=== PATIENT | female | born 1990 | race Caucasian/White ===

== ENCOUNTER 2016-11-04 11:57 | Emergency (ER) | payer BC ==
[2016-11-04 12:13] VITALS: BP 110/61
[2016-11-04] MEDS ORDERED: Ibuprofen TAB* 600 MG PO ONE (13:22)
--- NOTE | 2016-11-24 08:57 | UC ---
Kory Mccrary Angela, scribed for Gavi Santos MD on 11/04/16 at 1322 . General HPI - HPI Summary HPI Summary: This pt is a 26 y/o female presenting to [facility] c/o sore throat and muffled ear since yesterday, worsening overnight. Pt reports it started as a mild sore throat. She additionally notes her whole face feels swollen. Per triage note, pt reports that her throat feels like "I swallowed razor blades this morning." Pt denies rash, fever, cough. Pt denies any PMHx of mono. - History of Current Complaint Chief Complaint: UCRespiratory Stated Complaint: THROAT Time Seen by Provider: 11/04/16 13:14 Hx Obtained From: Patient Hx Last Menstrual Period: mirana Onset/Duration: Lasting Days - 1 day, Worse Since - last night Associated Signs & Symptoms: Positive: Other - facial swelling, sore throat, left ear muffled. Negative: Fever, Headache, Nausea, Vomiting - Allergy/Home Medications Allergies/Adverse Reactions: Allergies Allergy/AdvReac Type Severity Reaction Status Date / Time Cephalexin [From Keflex] Allergy Rash Verified 05/11/15 11:11 PMH/Surg Hx/FS Hx/Imm Hx - Additional Past Medical History Additional PMH: PMHx: bilateral ovarian cysts Other Endocrine History: DENIES: diabetes Other Cardiovascular History: DENIES: HTN Respiratory History: Asthma - exercise induced Psychological History: Anxiety, Depression, Post Traumatic Stress Disorder Other Psychological History: ADD - Surgical History Surgical History: Yes Surgery Procedure, Year, and Place: appy 1999. WISDOM TEETH--2007 - Family History Known Family History: Positive: Diabetes - great grandmother, Other - Mother: osteoporosis, endometriosis, hypothyroidism. Negative: Hypertension Family History: Maternal grandfather: arthritis. Grandmother: colon CA. - Social History Alcohol Use: Occasionally Substance Use Type: None Smoking Status (MU): Former Smoker Type: Cigarettes Amount Used/How Often: 2 - 1/4 pack cigarettes daily Length of Time of Smoking/Using Tobacco: 5 YEARS Have You Smoked in the Last Year: Yes When Did the Patient Quit Smoking/Using Tobacco: January 30, 2014 Household Exposure Type: Cigarettes - Immunization History Most Recent Influenza Vaccination: season Review of Systems Constitutional: Negative Skin: Negative Eyes: Negative ENT: Sore Throat, Ear Ache - left ear is muffled, Other - face swelling Respiratory: Negative Cardiovascular: Negative Gastrointestinal: Negative Genitourinary: Negative Motor: Negative Neurovascular: Negative Musculoskeletal: Negative Neurological: Negative All Other Systems Reviewed And Are Negative: Yes Physical Exam Triage Information Reviewed: Yes Appearance: Well-Nourished Vital Signs: Initial Vital Signs Temp 98.2 F 11/04/16 12:10 Pulse 90 11/04/16 12:10 Resp 18 11/04/16 12:10 BP 110/61 11/04/16 12:10 Pulse Ox 100 11/04/16 12:10 Vital Signs Reviewed: Yes Eye Exam: Normal ENT: Positive: Other: - Posterior pharynx is very erythematous. Uvula is midline. No sores are appreciated. Neck: Positive: Supple, Nontender, No Lymphadenopathy Respiratory Exam: Normal Respiratory: Positive: Chest non-tender, Lungs clear, Normal breath sounds, No respiratory distress, No accessory muscle use Cardiovascular Exam: Normal Cardiovascular: Positive: RRR, No Murmur, Pulses Normal, Brisk Capillary Refill Abdominal Exam: Normal Abdomen Description: Positive: Nontender, No Organomegaly, Soft Bowel Sounds: Positive: Present Musculoskeletal Exam: Normal Musculoskeletal: Positive: Strength Intact Neurological Exam: Normal - nonfocal, grossly intact Psychological Exam: Normal - conversing easily and appropriately Skin Exam: Normal - no visible or reported rash Course/Dx - Course Course Of Treatment: Rapid strep test is negative for strep throat. Reviewed with pt. Discussed results and coa. Questions as posed answered to the best of my ability. - Differential Dx - Multi-Symptom Provider Diagnoses: acute pharyngitis Discharge - Discharge Plan Condition: Stable Disposition: HOME Prescriptions: Azithromyxin OLIVIER (NF) [Z-Olivier (Zithromax) 250 mg tabs #6] 2 tab PO .TODAY, THEN 1 DAILY #6 tab Ibuprofen TAB* [Motrin TAB* 600 MG] 600 mg PO Q8H PRN #30 tab PRN Reason: Pain Patient Education Materials: Pharyngitis (ED), Sinusitis (ED) Forms: *Work Release Referrals: Elizabeth Rogers MD [Primary Care Provider] - Additional Instructions: Follow up primary care physician per routine. Seek medical attention sooner for worse or new problems in the meantime. If your symptoms continue or worsen, then consider being tested for mononucleosis. The documentation as recorded by the scribe, Horn,Kenisha accurately reflects the service I personally performed and the decisions made by me, Gavi Santos MD.
== END 2016-11-04 14:20 | disposition home or self-care (01) ==
LOC: UCEAST 11:57
DX: J02.9 Acute pharyngitis, unspecified (principal); J45.990 Exercise induced bronchospasm; F41.9 Anxiety disorder, unspecified; F32.9 Major depressive disorder, single episode, unspecified; F98.8 Other specified behavioral and emotional disorders with onset usually occurring in childhood and adolescence; N83.202 Unspecified ovarian cyst, left side; N83.201 Unspecified ovarian cyst, right side; Z88.1 Allergy status to other antibiotic agents; Z87.891 Personal history of nicotine dependence
CPT/HCPCS: 87651; 99212; A9270-GY; G0463

== ENCOUNTER 2017-07-20 12:11 | Emergency (ER) | payer BC ==
[2017-07-20 12:50] VITALS: BP 99/66
--- NOTE | 2017-07-20 12:51 | UC ---
Eye Complaint HPI - HPI Summary HPI Summary: 26 y/o female presents to the urgent care c/o left eye swelling and pain x 2 weeks. She has been using her allergy eye drops Aquate itchy relief w/o any improvement. However she noticed yesterday a small stye in the lateral side of her upper eyelid that is painful. Last year she had a stye and it worsen so bad w/ periorbital cellulitis that DR Garza Rx Doxycycline PO and Tobramycin Dexamethasone opthalmic drops. Pt request a Rx for the same drops. She brought empty medication. Pain is 7/10 at touch w/ mild redness. Pt denies visual disturbance, photophobia, fever, SOB, chest pain, GARCIA, abdominal pain,N/V/ D - History of Current Complaint Chief Complaint: UCEye Stated Complaint: EYE PAIN Time Seen by Provider: 07/20/17 12:49 Hx Obtained From: Patient Hx Last Menstrual Period: Mirena ?: No Onset/Duration: Gradual Onset Timing: Constant Severity Initially: Mild Severity Currently: Moderate Pain Intensity: 7 Pain Scale Used: 0-10 Numeric Location of Injury: Eye Lid (upper) - left upper eyelid Character: Foreign Body Sensation Aggravating Factor(s): Blinking Alleviating Factor(s): Nothing Associated Signs And Symptoms: Positive: Drainage (Clear), Swelling - mild - Risk Factors Penetrating Injury Risk Factor: Negative Globe Rupture Risk Factors: Negative Acute Glaucoma Risk Factors: Negative Optic Artery Occlusion Risk Factors: Negative - Allergies/Home Medications Allergies/Adverse Reactions: Allergies Allergy/AdvReac Type Severity Reaction Status Date / Time cephalexin Allergy Rash Verified 07/20/17 12:45 PMH/Surg Hx/FS Hx/Imm Hx Previously Healthy: Yes - Pt denies PMHX - Surgical History Surgical History: Yes Surgery Procedure, Year, and Place: appy 1999. WISDOM TEETH--2007 - Family History Known Family History: Positive: None, Diabetes - great grandmother, Other - Mother: osteoporosis, endometriosis, hypothyroidism. Negative: Hypertension Family History: Maternal grandfather: arthritis. Grandmother: colon CA. - Social History Occupation: Employed Full-time Lives: With Family Alcohol Use: Occasionally Substance Use Type: None Smoking Status (MU): Former Smoker Type: Cigarettes Amount Used/How Often: 2 - 1/4 pack cigarettes daily Length of Time of Smoking/Using Tobacco: 5 YEARS Have You Smoked in the Last Year: Yes When Did the Patient Quit Smoking/Using Tobacco: January 30, 2014 Household Exposure Type: Cigarettes - Immunization History Most Recent Influenza Vaccination: 2014/2015 season Review of Systems Constitutional: Negative Skin: Negative Eyes: Drainage - clear, Eye Redness - left upper eyelid painful and red ENT: Negative Respiratory: Negative Cardiovascular: Negative Gastrointestinal: Negative Genitourinary: Negative Motor: Negative Neurovascular: Negative Musculoskeletal: Negative Neurological: Negative Psychological: Negative Is Patient Immunocompromised?: No All Other Systems Reviewed And Are Negative: Yes Physical Exam - Summary Physical Exam Summary: Vital Signs Reviewed: Yes General: Well appearing, well nourished female in no apparent pain distress Eyes: Positive: B/L Conjunctiva clear- Visual acuity: WNL,Visual gutiérrez: full to confrontation.mild periorbital soft tissue swelling at the left upper eyelid with erythema and white small pustule in the lateral side of eyelid, tender to palpation. PERRLA, EOMI intact w/out limitation or complaint of pain. eyelashes clear. mild tearing and yellowish drainage observed. No ciliary flush. No chemosis, No photophobia. Normal fundoscopic exam; no proptosis, exophthalmos, nystagmus. ENT: Positive: Normal ENT inspection, Hearing grossly normal, Pharynx normal, Nasal congestion, Nasal drainage - clear, TMs normal - B/L external ear canal clear , TM's WNL. Negative: Tonsillar swelling, Tonsillar exudate Neck: Positive: Supple, Nontender, No Lymphadenopathy Respiratory: Positive: Chest nontender, Lungs clear, Normal breath sounds, No respiratory distress Cardiovascular: Positive: RRR, No Murmur, Pulses Normal, Brisk Capillary Refill Abdomen Description: Positive: Nontender, No Organomegaly, Soft. Negative: CVA Tenderness (R), CVA Tenderness (L) Bowel Sounds: Positive: Present Musculoskeletal: Positive: Strength Intact, ROM Intact, No Edema Neurological Exam: Normal Psychological Exam: Normal Skin Exam: Normal Triage Information Reviewed: Yes Vital Signs: Initial Vital Signs Temp 98.1 F 07/20/17 12:46 Pulse 78 07/20/17 12:46 Resp 18 07/20/17 12:46 BP 99/66 07/20/17 12:46 Pulse Ox 100 07/20/17 12:46 Eye Complaint Course/Dx - Course Course Of Treatment: 26 y/o female presents to the urgent care c/o left eye swelling and pain x 2 weeks. She has been using her allergy eye drops Aquate itchy relief w/o any improvement. However she noticed yesterday a small stye in the lateral side of her upper eyelid that is painful. Last year she had a stye and it worsen so bad w/ periorbital cellulitis that DR Garza Rx Doxycycline PO and Tobramycin Dexamethasone opthalmic drops. Pt request a Rx for the same drops. She brought empty medication. Pain is 7/10 at touch w/ mild redness. Pt denies visual disturbance, photophobia, fever, SOB, chest pain , GARCIA, abdominal pain,N/V/D. Hx obtained. Pt with a LF lateral upper eyelid internal hordeolum on examination. Pt Rx Tobramycin Ophthalmic drops as seh requested. Pt advised to apply warm compresses and massage the eye with gentle pressure 4-5 times for 10-15min throughout the day. Then apply ABX and if not improvement of symptoms to f/u with her regulatory internship Dr Rolon for further evaluation and treatment. PT understood and agreed with plan of care. - Differential Dx/Diagnosis Differential Diagnosis/HQI/PQRI: Conjunctivitis, Corneal Abrasion, Periorbital Cellulitis, Other - hordeolum Provider Diagnoses: 1-Left uper eyelid internal hordeolum Discharge - Sign-Out/Discharge Documenting (check all that apply): Discharge/Admit/Transfer - D/c home - Discharge Plan Condition: Stable Disposition: HOME Prescriptions: Tobramycin/Dexameth OPTH.SUSP* [Tobradex 0.3-0.1%*] 1 drop LEFT EYE TID #1 btl Patient Education Materials: Lashay (ED) Referrals: Elizabeth Rogers MD [Primary Care Provider] - 2 Days Joon Rolon MD [Medical Doctor] - If Needed Additional Instructions: 1-Please apply ophthalmic drops on your left eye as directed. Please apply warm compresses and massage the eye with gentle pressure 4-5 times for 10-15min throughout the day. Encourage hand washing to avoid spread 2- If you do not improve or if symptoms worsen please f/u with your regulatory internship DR Pratt for further evaluation and treatment - Billing Disposition and Condition Condition: STABLE Disposition: HOME
== END 2017-07-20 13:20 | disposition home or self-care (01) ==
LOC: UCEAST 12:11
DX: H00.014 Hordeolum externum left upper eyelid (principal); Z87.891 Personal history of nicotine dependence
CPT/HCPCS: 99212; G0463

== ENCOUNTER 2018-11-02 09:49 | Emergency (ER) | payer BC ==
--- NOTE | 2018-11-02 10:24 | UC ---
Skin Complaint HPI - HPI Summary HPI Summary: 28 yo female presents with soft tissue lump to her left lower abdomen. She tells me that this area has been there for 5-6 years, but over the last few weeks has noticed this getting larger. She saw her PCP years ago and was told it was a pulled muscle so she left it alone, but the recent change in size has concerned her. She has no pain to the area. Denies weight loss, fevers, chills, night sweats, trauma to the area, dysuria, change in bowel habits, abdominal pain, n/v. - History of Current Complaint Time Seen by Provider: 11/02/18 10:24 Stated Complaint: LUMP ON STOMACH Hx Obtained From: Patient Hx Last Menstrual Period: Mirena Onset/Duration: Gradual Onset Current Severity: None - Allergy/Home Medications Allergies/Adverse Reactions: Allergies Allergy/AdvReac Type Severity Reaction Status Date / Time cephalexin Allergy Rash Verified 11/02/18 10:28 Home Medications: Home Medications Sertraline HCl [Zoloft] 1 tab PO DAILY 11/02/18 [History Confirmed 11/02/18] PMH/Surg Hx/FS Hx/Imm Hx Psychological History: Anxiety, Depression - Surgical History Surgical History: Yes Surgery Procedure, Year, and Place: appy 1999. WISDOM TEETH--2007 - Family History Known Family History: Positive: None, Diabetes - great grandmother, Other - Mother: osteoporosis, endometriosis, hypothyroidism. Negative: Hypertension Family History: Maternal grandfather: arthritis. Grandmother: colon CA. - Social History Lives: With Family Alcohol Use: Occasionally Substance Use Type: None Smoking Status (MU): Former Smoker Type: Cigarettes Amount Used/How Often: 2 - 1/4 pack cigarettes daily Length of Time of Smoking/Using Tobacco: 5 YEARS Have You Smoked in the Last Year: Yes When Did the Patient Quit Smoking/Using Tobacco: January 30, 2014 Household Exposure Type: Cigarettes - Immunization History Most Recent Influenza Vaccination: 2014/2015 season Review of Systems All Other Systems Reviewed And Are Negative: No Constitutional: Positive: Negative Skin: Positive: Other - Left abdomen soft tissue mass Respiratory: Positive: Negative Cardiovascular: Positive: Negative Neurological: Positive: Negative Psychological: Positive: Negative Physical Exam - Summary Physical Exam Summary: GENERAL: NAD. WDWN. No pain distress. SKIN: LLQ abdomen: soft tissue 5.0cm oval shaped area of skin edema with fluid wave. Soft and mobile. NTTP. No deep tissue nodule or abscess appreciated. No erythema, ecchymosis, induration, open wound, or cystic lesion appreciated. NECK: Supple. Nontender. No lymphadenopathy. CHEST: No accessory muscle use. Breathing comfortably and in no distress. CV: Pulses intact. Cap refill <2seconds NEURO: Alert. PSYCH: Age appropriate behavior. Triage Information Reviewed: Yes Vital Signs: Vital Signs: Temp Pulse Resp BP Pulse Ox 97.7 F 87 18 113/66 98 11/02/18 10:23 11/02/18 10:23 11/02/18 10:23 11/02/18 10:23 11/02/18 10:23 Vital Signs Reviewed: Yes Diagnostics - Radiology US soft tissue Radiology Interpretation Completed By: Radiologist Summary of Radiographic Findings: IMPRESSION: NO SONOGRAPHIC ABNORMALITY TO CORRESPOND TO THE HISTORY OF PALPABLE ABNORMALITY. A NEGATIVE REPORT SHOULD NOT PRECLUDE OR DELAY THE EVALUATION OF A CLINICALLY SUSPICIOUS PALPABLE ABNORMALITY Course/Dx - Course Course Of Treatment: Discussed US results with pt. Recommend f/u with general surgeon for possible biopsy of the area given change in appearance. - Diagnoses Provider Diagnosis: Soft tissue swelling Discharge ED - Sign-Out/Discharge Documenting (check all that apply): Patient Departure All imaging exams completed and their final reports reviewed: Yes - Discharge Plan Condition: Stable Disposition: HOME Referrals: Elizabeth Rogers MD [Primary Care Provider] - Keaton Lewis MD [Medical Doctor] - If Needed Additional Instructions: If you develop a fever, shortness of breath, chest pain, new or worsening symptoms - please call your PCP or go to the ED immediately. Your ultrasound did not show any abnormality in the area of concern today. I recommend that you follow up with a general surgeon for potential biopsy of the area - Billing Disposition and Condition Condition: STABLE Disposition: Home
[2018-11-02 10:29] VITALS: BP 113/66
== END 2018-11-02 11:47 | disposition home or self-care (01) ==
LOC: UCEAST 09:49
DX: R19.04 Left lower quadrant abdominal swelling, mass and lump (principal); F41.9 Anxiety disorder, unspecified; F32.9 Major depressive disorder, single episode, unspecified; Z87.891 Personal history of nicotine dependence
CPT/HCPCS: 76705; 99211; G0463

== ENCOUNTER 2019-03-14 20:12 | Emergency (ER) | payer BC ==
[2019-03-14] MEDS ORDERED: Ketorolac INJ* 30 MG/ML 1 ML VIAL IM ONE (21:18)
--- NOTE | 2019-03-14 21:37 | UC ---
Abdominal Pain Female HPI - HPI Summary HPI Summary: The patient is a 28-year-old female with acute onset of pelvic pain about 9 AM. She has taken a hydrocodone today without relief. She has an IUD. Her pain is worse with movement. She has nausea. She has vomited once. She has some low back pain associated with it. She denies any UTI symptoms. She thinks she has had ovarian cysts in the past. - History of Current Complaint Chief Complaint: UCGU Stated Complaint: ABDOMINAL PAIN Time Seen by Provider: 03/14/19 21:12 Hx Obtained From: Patient Hx Last Menstrual Period: mirena IUD Onset/Duration: Sudden Onset, Lasting Hours Timing: Constant Severity Initially: Moderate Severity Currently: Moderate Pain Intensity: 7 Pain Scale Used: 0-10 Numeric Location: Suprapubic Radiates: Yes Radiates to: Back Character: Cramping, Sharp Aggravating Factor(s): Nothing Alleviating Factor(s): Nothing Associated Signs and Symptoms: Positive: Back Pain, Nausea. Negative: Diaphoresis, Fever, Cough, Chest Pain, Dizzy, Constipation, Blood in Stool, Urinary Symptoms, Decreased Appetite, Vaginal Bleeding, Vaginal Discharge, Vomiting, Diarrhea Female Torso: 1 - pain - Risk Factors Ectopic Risk Factor: IUD Use Allergies/Adverse Reactions: Allergies Allergy/AdvReac Type Severity Reaction Status Date / Time cephalexin Allergy Rash Verified 03/14/19 20:29 Home Medications: Home Medications HYDROcodone/ACETAMIN 5-325 MG* [Reed 5-325 TAB*] 1 tab PO PRN 03/14/19 [History ] PMH/Surg Hx/FS Hx/Imm Hx Previously Healthy: Yes - Surgical History Surgical History: Yes Surgery Procedure, Year, and Place: appendix 2000. WISDOM TEETH--2007 - Family History Known Family History: Positive: None, Diabetes - great grandmother, Other - Mother: osteoporosis, endometriosis, hypothyroidism. Negative: Hypertension Family History: Maternal grandfather: arthritis. Grandmother: colon CA. - Social History Alcohol Use: Occasionally Substance Use Type: None Smoking Status (MU): Former Smoker Type: Cigarettes Amount Used/How Often: 2 - 1/4 pack cigarettes daily Length of Time of Smoking/Using Tobacco: 5 YEARS Have You Smoked in the Last Year: Yes When Did the Patient Quit Smoking/Using Tobacco: January 30, 2014 Household Exposure Type: Cigarettes - Immunization History Most Recent Influenza Vaccination: season Review of Systems All Other Systems Reviewed And Are Negative: Yes Constitutional: Positive: Negative Skin: Positive: Negative Eyes: Positive: Negative ENT: Positive: Negative Respiratory: Positive: Negative Cardiovascular: Positive: Negative Gastrointestinal: Positive: Abdominal Pain, Vomiting, Nausea Genitourinary: Positive: Negative Motor: Positive: Negative Neurovascular: Positive: Negative Musculoskeletal: Positive: Negative Neurological: Positive: Negative Psychological: Positive: Negative Physical Exam Triage Information Reviewed: Yes Appearance: Well-Appearing, Well-Nourished, Pain Distress Vital Signs: Initial Vital Signs Temp 98.4 F 03/14/19 20:24 Pulse 86 03/14/19 20:24 Resp 16 03/14/19 20:24 BP 133/71 03/14/19 20:24 Pulse Ox 99 03/14/19 20:24 Vital Signs Reviewed: Yes Eyes: Positive: Conjunctiva Clear ENT: Positive: Hearing grossly normal. Negative: Nasal congestion, Nasal drainage, Trismus, Muffled voice Dental Exam: Normal Neck: Positive: Supple, Nontender Respiratory: Positive: Lungs clear, Normal breath sounds, No respiratory distress, No accessory muscle use Cardiovascular: Positive: RRR Abdomen Description: Positive: No Organomegaly, Soft. Negative: Nontender, CVA Tenderness (R), CVA Tenderness (L) Bowel Sounds: Positive: Present Pelvic Exam: Positive: External Exam Normal, No Cerv. Motion Tender, Discharge, Tender Adnexa - bilat, Tender Uterus. Negative: Tender w/ Cervical Motion, Ulcers Musculoskeletal: Positive: ROM Intact, No Edema Neurological: Positive: Alert Psychological Exam: Normal Skin Exam: Normal Diagnostics - Laboratory Lab Results: UA tr RBC uHCG (-) - Radiology No standard instances Radiology Interpretation Completed By: ED Physician Summary of Radiographic Findings: non specific bowel gas pattern, IUD Re-Evaluation - Re-Evaluation Second Eval Change: Improved - pain 03/04 Abd Pain Female Course/Dx - Differential Dx/Diagnosis Provider Diagnosis: Acute pelvic pain, female Discharge ED - Sign-Out/Discharge Documenting (check all that apply): Patient Departure All imaging exams completed and their final reports reviewed: No - Discharge Plan Condition: Stable Disposition: HOME Patient Education Materials: Pelvic Pain in Women (ED) Referrals: Elizabeth Rogers MD [Primary Care Provider] - Additional Instructions: I suspect your pain is due to an ovarian cyst that ruptured if pain recurs or if not markedly improved tomorrow I suggest you get rechecked you may need an ultrasound return here (before mid afternoon) or go to the ER or your billing manager - Billing Disposition and Condition Condition: STABLE Disposition: Home
[2019-03-14] MEDS ORDERED: Naproxen TAB* 250 MG PO ONE (22:17)
[2019-03-14 22:33] VITALS: BP 125/78
--- NOTE | 2019-03-15 14:52 | UC ---
- Progress Note Progress Note: RADIOLOGY REPORT REVIEWED. NO EVIDENCE FOR OBSTRUCTION ON XRAYS. NO CHANGE IN MGMT. Course/Dx - Diagnoses Provider Diagnoses: Acute pelvic pain, female Discharge ED - Sign-Out/Discharge Documenting (check all that apply): Post-Discharge Follow Up All imaging exams completed and their final reports reviewed: Yes - Discharge Plan Condition: Stable Disposition: HOME Prescriptions: Naproxen [Naproxen 500 mg tab] 500 mg PO BID PRN #20 tablet PRN Reason: Pain Patient Education Materials: Pelvic Pain in Women (ED) Forms: *Gen. Provider Communication, *Work Release Referrals: Elizabeth Rogers MD [Primary Care Provider] - Additional Instructions: I suspect your pain is due to an ovarian cyst that ruptured if pain recurs or if not markedly improved tomorrow I suggest you get rechecked you may need an ultrasound return here (before mid afternoon) or go to the ER or your complaint manager - Billing Disposition and Condition Condition: STABLE Disposition: Home
[2019-03-16 12:47] LABS: Chlamydia trachomatis NAA Negative (Negative); Neisseria gonorrhoeae (GC) NAA Negative (Negative)
[2019-03-16 13:03] LABS: Trichomonas vag NAA Female Negative (Negative)
== END 2019-03-14 22:31 | disposition home or self-care (01) ==
LOC: UCEAST 20:12
DX: R10.2 Pelvic and perineal pain (principal); R11.2 Nausea with vomiting, unspecified; Z88.1 Allergy status to other antibiotic agents; Z87.891 Personal history of nicotine dependence
CPT/HCPCS: 74018; 81003; 84702; 87480; 87491; 87510; 87591; 87661; 96372; 99213; A9270-GY; G0463; J1885

== ENCOUNTER 2021-12-08 10:28 | Inpatient (IN) ==
[2021-12-08] MEDS ORDERED: Lactated Ringers 1000 ml BAG 1,000 ML IV ONE ×2 (11:04→18:42)
[2021-12-08] MEDS ORDERED: Buffered Lidocaine 1% SYRIN 1 ml INTRADERM ONE (11:04)
[2021-12-08] MEDS: Oxytocin in LR 20,000 MILLI.UNIT/1,000 ML BAG IV SCH (12:11)
[2021-12-08] MEDS: Lactated Ringers 1000 ml BAG 1,000 ML IV SCH ×2 (12:11→16:03)
[2021-12-08 12:23] LABS: ABS Monocytes 0.5 10^3/ul (0-0.8); ABS Neutrophils 6.7 10^3/ul (1.5-7.7); Eosinophil % 0.2 %; Hematocrit 41 % (35-47); Lymphocyte % 21.2 %; Mean Corpuscular HGB Conc 34 g/dL (31-36); Mean Corpuscular Hemoglobin 30 pg (27-31); Mean Corpuscular Volume 87 fL (80-97); Mean Platelet Volume 9.3 fL (7.4-10.4); Nucleated Red Blood Cells % 0.2; Platelet Count 203 10^3/uL (150-450); Red Blood Count 4.67 10^6 /uL (3.70-4.87); Red Cell Distribution Width 13 % (10-15); White Blood Count 9.2 10^3/uL (3.5-10.8)
[2021-12-08 12:45] LABS: Urine Benzodiazepine Screen None Detected (None Detect); Urine Cannabinoids Screen None Detected (None Detect); Urine Opiates Screen None Detected (None Detect)
[2021-12-08 12:47] LABS: Urine Appearance Cloudy; Urine Bilirubin Negative (Negative); Urine Blood Negative (Negative); Urine Color Yellow; Urine Glucose Negative (Negative); Urine Ketones Negative (Negative); Urine Nitrite Negative (Negative); Urine Protein Negative (Negative); Urine Specific Gravity 1.015 (1.002-1.030); Urine Urobilinogen Negative (Negative)
[2021-12-08] MEDS ORDERED: OBEPIDURAL (200 ML) 200 ML EPIDURAL ONE (15:44)
[2021-12-08] MEDS ORDERED: Lidocaine/Epinephrin 1.5%/200 5 ML AMP INJ ONE ×2 (15:44→18:15)
[2021-12-08] MEDS ORDERED: Sodium Citrate/Citric Acid LIQ 15 ML UDC PO PRN (18:42)
[2021-12-08] MEDS ORDERED: Phenylephrine 40 mcg/mL 10mL (400mcg) SYRINGE IV PUSH PRN ×2 (18:42)
[2021-12-08] MEDS ORDERED: OBEPIDURAL (200 ML) 200 ML EPIDURAL SCH (19:00)
[2021-12-08] MEDS ORDERED: Lactated Ringers 1000 ml BAG 1,000 ML IV SCH (19:00)
[2021-12-08] MEDS ORDERED: Albuterol HFA INHALER 8 gm MDI INH PRN (21:05)
[2021-12-08] MEDS ORDERED: Glycerin ADULT 2.4 gm SUPP PR PRN (23:49)
[2021-12-08] MEDS ORDERED: Witch Hazel PAD JAR TOPICAL PRN (23:49)
[2021-12-09] MEDS: Dibucaine 1% OINT 28.35 GM TUBE PR PRN ×2 (01:11→15:02)
[2021-12-09] MEDS ORDERED: Methylergonovine 0.2 mg AMPULE 1 ml AMP IM ONE (02:15)
[2021-12-09] MEDS: Oxytocin in LR 20,000 MILLI.UNIT/1,000 ML BAG IV SCH (03:48)
[2021-12-09 07:16] LABS: ABS Lymphocytes 2.1 10^3/ul (1.0-4.8); ABS Monocytes 0.9 10^3/ul (0-0.8); ABS Neutrophils 14.6 10^3/ul (1.5-7.7); Hematocrit 33 % (35-47); Hemoglobin 11.3 g/dL (12.0-16.0); Lymphocyte % 11.8 %; Mean Corpuscular HGB Conc 34 g/dL (31-36); Mean Corpuscular Hemoglobin 30 pg (27-31); Mean Corpuscular Volume 88 fL (80-97); Mean Platelet Volume 9.5 fL (7.4-10.4); Platelet Count 174 10^3/uL (150-450); Red Blood Count 3.79 10^6 /uL (3.70-4.87); Red Cell Distribution Width 13 % (10-15); White Blood Count 17.6 10^3/uL (3.5-10.8)
[2021-12-10 08:32] VITALS: BP 108/65
== END 2021-12-10 12:49 | disposition home or self-care (01) | DRG 560 ==
LOC: MCHOBOUT 10:28 → MCHOB 11:05
PROVIDERS: ADMIT Midwife; ATTEND Midwife